=== PATIENT | female | born 1985 | race Caucasian/White ===

== ENCOUNTER 2016-11-27 16:28 | Emergency (ER) | payer SELFPAY ==
[~2016-11-27] VITALS: Ht 157.5 cm; Wt 67.2 kg
[~2016-11-27 16:28] MED LIST: ALBU2.5V7 AEROSOL; ALBU8.5H INH; D ME PO
[2016-11-27 16:30] VITALS: Ht 157.5 cm; Wt 67.2 kg
--- OUTSIDE RECORDS SUMMARY | 2016-11-27 16:32 | XMS REPORT | Continuity of Care Document ---
Author Author [facility] Organization [facility] Address Unknown Phone Unavailable Support Name Relationship Address Phone KIMBERLI GARCIA APRN Caregiver [address] [place] [phone] Unavailable PRESTON IRWIN MD Caregiver [address] [place] [address] Unavailable THEODORAYAS Next Of Kin [address] [place] [phone] Insurance Providers Guarantor Stephanie Car Address [address] [place] [address] Email DENIED 16 Payer Self Pay Subscriber's Name Stephanie Car Relationship 18 Self Advance Directives Directive Response Recorded Date/Time Advanced Directives Type None 11/03/16 2:30pm Chief Complaint and Reason for Visit Chief Complaint Cough,Fever,Flu,URI Reason for Visit [id number] Problems Active Problems Medical Problem Onset Date Status Blackout spell Unknown Acute Blackout spell Unknown Acute Body aches Unknown Acute Drug ingestion Unknown Acute Lumbar back pain Unknown Acute Paraspinal muscle spasm Unknown Acute Polysubstance abuse Unknown Acute Right lower quadrant abdominal pain Unknown Acute Right lower quadrant abdominal pain Unknown Acute Suicide gesture Unknown Acute Past Problems Medical Problem Onset Date Asthma exacerbation Unknown Syncope, non cardiac Unknown Viral gastroenteritis Unknown Viral illness Unknown Medications Current Home Medications Medication Dose Units Route Directions Days Qty Instructions Start Date Albuterol Sulfate 2.5 Mg/3 Ml Vial.neb 2.5 Mg Aerosol Tx. Every 4 Hours Prn as needed for Wheezing 30 Vial 06/16/16 Albuterol Sulfate (Proair Hfa 90 Mcg/Actuation) 8.5 Gm Hfa.aer.ad 2 Puff Inhalation Four Times Daily as needed for Prn Orders 02/14/16 D-Methorphan/Acetamin/Doxylamn (Night Cold-Flu Relief Liq Cap) 1 Each Capsule 1 Cap Oral Every 4 Hours as needed for Prn Orders 11/03/16 Past Home Medications Medication Directions Ordered Status Albuterol 17 Gm Aerosol, As Needed 11/06/11 Discontinued Albuterol (Proventil) 17 Gm Aerosol, 17 Gm Inhalation As Needed 09/16/10 Discontinued Albuterol 17 Gm Aer.refill, 17 Gm Inhalation As Needed 03/01/09 Discontinued Bc , 03/01/09 Discontinued Ethinyl Estradiol/Drospirenone (Cyndie 28 Tablet) 1 Tab Tablet, Oral Daily 04/10 Discontinued Ibuprofen 800 Mg Tablet, 800 Mg Oral As Needed 04/22/12 Discontinued Mometasone Furoate (Nasonex) 17 Gm [place], As Needed 08/09/09 Discontinued None , 06/24/10 Discontinued None , 09/12/08 Discontinued Vits W-Ca,Fe,Fa(<1MG) () 1 Tab Tablet, 1 Tab Oral Daily 15/07 Discontinued Social History Social History Problem Response Recorded Date/Time Onset Date Status Hx Substance Use Y HX MARIJUANA AND COCAINE 11/03/2016 2:30pm Not Applicable Not Applicable Hx Alcohol Use No 11/03/2016 2:30pm Not Applicable Not Applicable Has the pt used tobacco in the last 12 months Yes 05/12/2014 5:01am Not Applicable Not Applicable Tobacco Usage none 05/12/2014 5:50am Not Applicable Not Applicable Query Response Start Date Stop Date Smoking Status Never smoker Hospital Discharge Instructions No hospital discharge instructions. Plan of Care Discharge Date 11/03/16 2:30pm Disposition 01 DISCHARGED HOME, SELF-CARE Condition at Discharge Stable Instructions/Education Provided Viral Syndrome (ED) Prescriptions See Medication Section Referrals KIMBERLI GARCIA APRN Address: [address] [place], [place] [phone] Additional Instructions/Education I do want you to continue to drink plenty of fluids and rest at home. Tylenol and/or Motrin as needed for fever or body aches. If you are not improving over the next 1-2 days then follow up with your primary care provider. Care Plan and Goals Physician Care Plan Problem:Viral Illness Goal: Follow up with primary care provider Instructions: Take medications and follow care plan as discussed/written Functional Status No functional status results. Allergies, Adverse Reactions, Alerts Allergen Type Severity Reaction Status Last Updated promethazine HCl Adverse Reaction Unknown SHAKY AND TIRED Active 11/03/16 hydrocodone bit Adverse Reaction Unknown HOT FLASHES AND SYNCOPE Active Azithromycin Allergy Severe RESP. DISTRESS Active 11/03/16 Immunizations Query Response on File Recorded Date/Time Hx Influenza Vaccination No 09/27/14 10:02am Hx Pneumococcal Vaccination No 09/27/14 10:02am Hx Influenza Vaccination No 09/27/14 10:02am Influenza Vaccine Hx NO 11/03/16 2:30pm Vital Signs Acute Vital Signs Vital Response Date/Time Temperature (Fahrenheit) 98.4 deg F (96.8 - 99.1) 11/03/2016 2:30pm Temperature (Calculated Celsius) 36.09875 degrees C (36.0 - 37.3) 11/03/2016 2:30pm Pulse Rate (adult) 94 bpm (60 - 100) 11/03/2016 2:30pm Respiratory Rate 16 breaths/min (10 - 20) 11/03/2016 2:30pm O2 Sat by Pulse Oximetry 98 % (90 - 100) 11/03/2016 2:30pm Blood Pressure 132/78 mm Hg 11/03/2016 2:30pm Height (Feet) 5 feet 11/03/2016 1:29pm Height (Inches) 2.00 inches 11/03/2016 1:29pm Weight (Kilograms) 70.900 kg 11/03/2016 1:29pm Body Mass Index (BMI) 28.0 11/03/2016 1:29pm Results Laboratory Results Test Name Result Units Flags Reference Collection Date/Time Result Date/ Time Comments Influenza Type A Antigen NEGATIVE NEGATIVE 11/03/2016 1:51pm 2016 2:16pm Negative for Flu A protein antigen. Assay sensitivity is 90%. Influenza Type B Antigen NEGATIVE NEGATIVE 11/03/2016 1:51pm 2016 2:16pm Negative for Flu B protein antigen. Assay sensitivity is 90%. Procedures No known history of procedures. Encounters Encounter Location Arrival/Admit Date Discharge/Depart Date Attending Provider Departed Emergency Room [facility] 11/03/16 1:14pm 11/03/16 2: 30pm PRESTON IRWIN MD Recent Diagnosis
--- OUTSIDE RECORDS SUMMARY | 2016-11-27 16:32 | XMS REPORT | Continuity of Care Document ---
Author Author [facility] Organization [facility] Address Unknown Phone Unavailable Support Name Relationship Address Phone ALVARO HUTCHINSON MD Caregiver [facility] [address] [address] [phone] CHARISMA CASTLE MD Caregiver [address] [place] [address] JEREMY NEWSOME MD Caregiver [address] [place] [address] MARIA ESTHER ENCISO MD Caregiver [address] [place] [address] [phone] CARLOS DAVIS MD Caregiver [address] [place] [phone] YAS YIP Next Of Kin [address] [place] [address] Insurance Providers Payer Name Policy Number Subscriber Name Relationship Self Pay Stephanie Castro 18 Self Advance Directives Directive Response Recorded Date/Time Ordered Resuscitation Status Full Code 05/12/14 3:53am Chief Complaint and Reason for Visit Chief Complaint RLQ PAIN Reason for Visit Right lower quadrant abdominal pain Right lower quadrant abdominal pain Problems Medical Problems Problem Onset Date Status Right lower quadrant abdominal pain Unknown Active Right lower quadrant abdominal pain Unknown Active Medications Medication Dose Route Sig Days/Qty Instructions Order Date Discontinued Date Status [None] 09/12/08 05/09/09 Discontinued [Bc] 03/01/09 08/09/09 Discontinued Albuterol 17 Gm IH NEEDED 03/01/09 05/13/10 Discontinued Ethinyl Estradiol/Drospirenone PO DAILY 08/09/09 05/13/10 Discontinued Mometasone Furoate NEEDED 08/09/09 05/13/10 Discontinued [None] 06/24/10 09/16/10 Discontinued Albuterol 17 Gm IH NEEDED 09/16/10 12/31/10 Discontinued Vits W-Ca,Fe,Fa(<1MG) 1 Tab PO DAILY 06/14/11 04/22/12 Discontinued Albuterol NEEDED 11/06/11 11/24/12 Discontinued Ibuprofen 800 Mg PO NEEDED 04/22/12 11/24/12 Discontinued Social History Social History Problem Response Recorded Date/Time Smoking Status Current every day smoker 05/12/2014 5:01am When did patient START smoking? AGE 17 05/12/2014 5:01am Chewing Tobacco Status No 05/11/2014 11:11pm Hx Substance Use No 05/11/2014 11:11pm Hx Alcohol Use Y RARE 05/11/2014 11:11pm Has the pt used tobacco in the last 12 months Yes 05/12/2014 5:01am Query Response Start Date Stop Date Smoking Status Current every day smoker Hospital Discharge Instructions Instructions: Care Instructions: Reason for Hospitalization: right upper quadrant abdominal pain I was in the hospital because (patient own words): "ABD PAIN" Discharge Diet: As tolerated Discharge Activity: . Restricted Follow Up Appointments: Call Jenny at extension [phone] to make post-op appointment for 05/20/14. Wound/Incision Care: May shower Durable Medical Equipment: N/A Notify Physician If: During the week: If you have questions about your care or wound, Call Dr. Hutchinson's office Condition at time of discharge: Good Condition at time of discharge: Good 2.Do not pick at it or scrub it while showering. 3.If the dressing begins to pull up, secure it with 4x4 gauze pad and tape. 4.You may shower; however, do not submerge yourself in water until the incision is completely healed. Mepilex 1.Dressing to remain in place until your follow up appointment. 2.If this dressing starts peeling up slightly, it may be reinforced, if it peels excessively, notify your surgeon's office. 3.You may shower with the dressing in place, but do not submerge in water 4.Do not allow water to seep under the dressing, if it should seep under, remove the dressing and notify your surgeon. Notify Physician If: Call your Surgeon if you have: 1.Chest pain, difficulty breathing, fever>100.5 degrees, chills, heart rate >100, confusion, or persistent nausea/vomitting. 2.Severe pain, swelling, redness, or warmth in either of your legs. 3.During office hours, call [phone] 4. After hours, please call at [phone], and have the extractor operator page your Surgeon IN THE EVENT OF AN EMERGENCY, seek medical care at the nearest Emergency Room Condition at time of discharge: Good Plan of Care Discharge Date 05/14/14 2:52pm Disposition 01 DISCHARGED HOME, SELF-CARE Instructions/Education Provided DI for Abdominal Pain-Adult Prescriptions See Medications Section Functional Status Query Response Date Recorded Physical Hygiene Self May 11, 2014 11:11pm Disabilities None May 12, 2014 3:27am Devices Used Glasses May 12, 2014 3:27am Dressing Self May 11, 2014 11:11pm Ambulation Self May 11, 2014 11:11pm Diet Self May 11, 2014 11:11pm Mental Status Alert May 12, 2014 5:38am Disabilities None May 12, 2014 3:27am Devices Used Glasses May 12, 2014 3:27am Physical Hygiene Self May 11, 2014 11:11pm Dressing Self May 11, 2014 11:11pm Ambulation Self May 11, 2014 11:11pm Diet Self May 11, 2014 11:11pm Allergies, Adverse Reactions, Alerts Allergen Type Severity Reaction Status Last Updated promethazine HCl Adverse Reaction Unknown SHAKY AND TIRED Active 05/11/14 hydrocodone bit Adverse Reaction Unknown HOT FLASHES AND SYNCOPE Active Doxycycline Adverse Reaction Mild VOMITING Active 05/11/14 Azithromycin Allergy Severe RESP. DISTRESS Active 05/11/14 Immunizations Name Given Type Hx Influenza Vaccination No Historical Hx Pneumococcal Vaccination No Historical Hx Influenza Vaccination No Historical Vital Signs Acute Vital Signs Vital Response Date/Time Temperature (Fahrenheit) 97.9 deg F (96.8 - 99.1) Temperature (Calculated Celsius) 36.50016 degrees C (36.0 - 37.3) Temperature Source Oral Pulse Rate (adult) 51 bpm (60 - 100) Respiratory Rate 16 breaths/min (10 - 20) O2 Sat by Pulse Oximetry 99 % (90 - 100) Oxygen Delivery Method Room Air Blood Pressure 106/74 mm Hg Blood Pressure Source Automatic Cuff Height 5 ft 2 in Weight 165 lb Body Mass Index 30.0 kg/m^2 Results Test Source Date Result Interp. Ref. Range Comments 17-Hydroxyprogesterone July 18, 2010 2:45pm Ref lab rpt scanned - --- 07/22/10 1141 ---17HYD previously reported as: SENT OUT Alanine Aminotransferase (ALT/SGPT) May 11, 2014 11:21pm 30 U/L N 9-52 Albumin May 11, 2014 11:21pm 4.2 G/DL N 3.5-5.0 Albumin/Globulin Ratio May 11, 2014 11:21pm 1.6 RATIO N 1.1-2.2 Alkaline Phosphatase May 11, 2014 11:21pm 100 U/L N 38-126 Amylase Level May 11, 2014 11:21pm 68 U/L N 30-110 Anion Gap May 13, 2014 4:24am 9 MEQ/L N 5-15 Anti-Nuclear Antibody (LAB) December 06, 2007 11:57am Sent out - Aspartate Amino Transf (AST/SGOT) May 11, 2014 11:21pm 24 U/L N 14 -36 BUN/Creatinine Ratio May 13, 2014 4:24am 9 RATIO N 6-26 Band Neutrophils # August 09, 2009 7:35pm 0.1 T/MM3 - Band Neutrophils % August 09, 2009 7:35pm 1.0 % N 0-6 Basophils # (Auto) May 13, 2014 4:24am 0.0 T/MM3 N 0-0.2 Basophils (%) (Auto) May 13, 2014 4:24am 0.2 % N 0-2 Beta HCG, Quantitative September 12, 2008 2:00pm Not detected UIU/L - NORMAL EXPECTED RANGE: NOT DETECTEDGESTATION 1-10 WEEKS: 45-256,380 11-15 WEEKS: 11,556-265,380 16-22 WEEKS: 27,[phone],954 23-40 WEEKS: 24,031-101,566 Blood Urea Nitrogen May 13, 2014 4:24am 6.0 MG/DL DL 7-17 C-Reactive Protein December 06, 2007 11:57am 5.1 MG/L N 3-10 STAT FAX TO [phone] Calcium Level May 13, 2014 4:24am 9.0 MG/DL DN 8.4-10.2 Calculated Osmolality May 13, 2014 4:24am 261 MOSM/KG N 261-280 Carbon Dioxide Level May 13, 2014 4:24am 26 MEQ/L N 22-30 Chemistry Specimen Hemolysis May 13, 2014 4:24am < 15 0-25 0-25 : No Hemolysis.26-70: Slight Hemolysis - can falsely elevate K and Urine Protein. 71-285: Moderate Hemolysis - can falsely elevate K, Troponin I, CA 19-9, PTH, CSF GLucose, and Urine Protein, and can falsely decrease Phenytoin. 286-999: Gross Hemolysis - can falsely elevate K, Troponin I, CA 19-9, PTH, CSF Glucose, and Urine Protine, and can falsely decrease Phenytoin. Recommend specimen recollection. Chlamydia Direct Antigen Assay August 09, 2009 10:37pm Negative - Chlamydia trachomatis Amplified DNA February 16, 2011 1:31pm Ref lab rpt scanned - --- 02/19/11 1533 ---CHLAMDNA previously reported as: SENT OUT Chloride Level May 13, 2014 4:24am 102 MEQ/L N 98-107 Conjugated Bilirubin April 22, 2012 1:07pm 0.00 MG/DL N 0.00-0.30 Creatinine May 13, 2014 4:24am 0.7 MG/DL N 0.7-1.2 Dehydroepiandrosterone Sulfate July 18, 2010 2:45pm Ref lab rpt scanned - --- 07/22/10 1141 ---DHEAS previously reported as: SEND OUT Eosinophils # (Auto) May 13, 2014 4:24am 0.2 T/MM3 N 0-0.5 Eosinophils # (Manual) August 09, 2009 7:35pm 0.1 T/MM3 N 0-0.5 Eosinophils % (Manual) August 09, 2009 7:35pm 1.0 % N 0-4 Eosinophils (%) (Auto) May 13, 2014 4:24am 2.7 % N 0-4 Erythrocyte Sedimentation Rate December 06, 2007 11:57am 9 MM/HR - Follicle Stimulating Hormone July 18, 2010 2:45pm 9.0 MIU/ML - Male: 1.0 - 42.5 Petra/mLFemale Ovulating: Follicular Phase: 2.7 - 15.4 mIU/mL, Peak: 3.9 - 22.0 Petra/mL, Luteal phase: 1.0 - 14.4 mIU/mL, Postmenopausal: 25.0 - 160.0 mIU/mL Fractionated Estrogens July 18, 2010 2:45pm Ref lab rpt scanned - --- 07/24/10 1619 ---ESTROF previously reported as: SENT OUT Free Thyroxine July 18, 2010 2:45pm 1.33 NG/DL N 0.78-2.19 Globulin May 11, 2014 11:21pm 2.6 G/DL N 2.4-3.6 Glomerular Filtration Rate Calc May 13, 2014 4:24am 100 - Glucometer May 13, 2014 3:05pm 85 mg/dL N 65-110 Glucose Level May 13, 2014 4:24am 72 MG/DL N 65-110 Group A Streptococcus Screen December 18, 2007 6:08pm Negative - Strep culture confirmation to follow Hematocrit May 13, 2014 4:24am 43.0 % N 36-46 Hemoglobin May 13, 2014 4:24am 14.5 GM/DL N 12-16 Human Chorionic Gonadotropin, Qual November 24, 2012 12:35pm Negative - Icterus Index May 13, 2014 4:24am < 2 0-7 Immature Granulocyte # (Auto) May 13, 2014 4:24am 0.01 T/MM3 N 0.00-0.03 Immature Granulocyte % (Auto) May 13, 2014 4:24am 0.1 % N 0.0-0.5 Influenza Type A Antigen October 02, 2012 9:10am Negative - Negative for Flu A protein antigen. Assay sensitivity isbetween 65-83%. A negative result does not exclude influenza virus infection. "Influenza FA" may be ordered if clinical presentation warrants confirmatory testing. Influenza Type B Antigen October 02, 2012 9:10am Negative - Negative for Flu B protein antigen. Assay sensitivity isbetween 65-83%. A negative result does not exclude influenza virus infection. "Influenza FA" may be ordered if clinical presentation warrants confirmatory testing. Lab Scanned Report February 21, 2011 8:19am LAB RESULTS - SCANNED [id number] - Lipase May 11, 2014 11:21pm 68 U/L N 23-300 Luteinizing Hormone July 18, 2010 2:45pm 23.6 MIU/ML - Male: 1.7 - 11.2 mIU/mLFemale Ovulating: Follicular Phase: 1.7 - 13.3 mIU/mL, Peak: 4.1 - 68.7 mIU/mL, Luteal phase: 0.5 - 19.8 mIU/mL, Postmenopausal: 14.4 - 62.2 mIU/mL Lymphocytes # (Auto) May 13, 2014 4:24am 3.1 T/MM3 N 1-4.8 Lymphocytes # (Manual) August 09, 2009 7:35pm 2.7 T/MM3 N 1-4.8 Lymphocytes % (Manual) August 09, 2009 7:35pm 25.0 % N 23-45 Lymphocytes (%) (Auto) May 13, 2014 4:24am 35.4 % N 23-45 Mean Corpuscular Hemoglobin May 13, 2014 4:24am 31.4 UUG N 26-34 Mean Corpuscular Hemoglobin Concent May 13, 2014 4:24am 33.7 GM/DL N 31-37 Mean Corpuscular Volume May 13, 2014 4:24am 93.1 UM3 N 80-100 Mean Platelet Volume May 13, 2014 4:24am 12.1 UM3 N 9.4-12.4 Monocytes # (Auto) May 13, 2014 4:24am 0.7 T/MM3 N 0-0.8 Monocytes # (Manual) August 09, 2009 7:35pm 0.6 T/MM3 N 0-0.8 Monocytes % (Manual) August 09, 2009 7:35pm 6.0 % N 0-9.0 Monocytes (%) (Auto) May 13, 2014 4:24am 8.0 % N 0-9.0 Monoscreen May 13, 2010 6:31am Negative - Neutrophils # (Auto) May 13, 2014 4:24am 4.7 T/MM3 N 1.8-7.7 Neutrophils # (Manual) August 09, 2009 7:35pm 7.2 T/MM3 N 1.8-7.7 Neutrophils % (Manual) August 09, 2009 7:35pm 67.0 % H 33-66 Neutrophils (%) (Auto) May 13, 2014 4:24am 53.6 % N 33-66 Platelet Count May 13, 2014 4:24am 192 T/MM3 N 130-400 Potassium Level May 13, 2014 4:24am 4.0 MEQ/L N 3.6-5 Prolactin July 18, 2010 2:45pm 7.8 NG/ML - Male: 3.3 - 20.8 ng/ mLFemale: Premenopausal: 2.1 - 47.6 ng/mL, Postmenopausal: 0 - 41.4 ng/mL RDW Standard Deviation May 13, 2014 4:24am 40.7 FL N 36.9-50.2 Red Blood Count May 13, 2014 4:24am 4.62 M/MM3 N 4.00-5.20 Rheumatoid Factor December 06, 2007 11:57am < 6 IU/ML 0-11 STAT FAX TO [phone] Sodium Level May 13, 2014 4:24am 137 MEQ/L N 134-144 Tests Not Done August 09, 2009 7:29pm Not done - Has specimen been collected/obtained? Y Thyroid Stimulating Hormone (TSH) July 18, 2010 2:45pm 0.82 MIU/ML N 0.47-4.68 Total Bilirubin May 11, 2014 11:21pm 0.40 MG/DL N 0.20-1.30 Total Protein May 11, 2014 11:21pm 6.8 G/DL N 6.3-8.2 Total Testosterone July 18, 2010 2:45pm Ref lab rpt scanned - -- - 07/22/10 1142 ---TESTOT previously reported as: SEND OUT Turbidity May 13, 2014 4:24am < 20 0-20 Unconjugated Bilirubin April 22, 2012 1:07pm 0.00 MG/DL N 0.00-1.10 Urinalysis Comment May 12, 2014 12:41am Microscopic not ind. - Has specimen been collected/obtained? Y Urine Amorphous Phosphates May 09, 2009 1:30pm Few - Has specimen been collected/obtained? YWhat is the Source? VOIDED Urine Bacteria March 01, 2009 1:21pm 1+ - Has specimen been collected/ obtained? YWhat is the Source? VOIDED Urine Bilirubin May 12, 2014 12:41am Negative - Has specimen been collected/obtained? Y Urine Blood May 12, 2014 12:41am Negative - Has specimen been collected/obtained? Y Urine Collection Type May 12, 2014 12:41am Voided-not cc-midstr - Has specimen been collected/obtained? Y Urine Color May 12, 2014 12:41am Yellow - Has specimen been collected/obtained? Y Urine Culture Indicated May 09, 2009 1:30pm Cult not set up - Has specimen been collected/obtained? YWhat is the Source? VOIDED Urine Glucose (UA) May 12, 2014 12:41am Negative - Has specimen been collected/obtained? Y Urine Ketones May 12, 2014 12:41am Negative - Has specimen been collected/obtained? Y Urine Leukocyte Esterase May 12, 2014 12:41am Negative - Has specimen been collected/obtained? Y Urine Microscopic Not Indicated April 22, 2012 1:55pm Not indicated - Has specimen been collected/obtained? Y Urine Mucus March 01, 2009 1:21pm Present - Has specimen been collected/obtained? YWhat is the Source? VOIDED Urine Nitrite May 12, 2014 12:41am Negative - Has specimen been collected/obtained? Y Urine Protein May 12, 2014 12:41am Negative - Has specimen been collected/obtained? Y Urine RBC March 01, 2009 1:21pm 0-1 /HPF - Has specimen been collected /obtained? YWhat is the Source? VOIDED Urine Specific [place] May 12, 2014 12:41am 1.015 - Has specimen been collected/obtained? Y Urine Squamous Epithelial Cells May 09, 2009 1:30pm Few - Has specimen been collected/obtained? YWhat is the Source? VOIDED Urine Turbidity May 12, 2014 12:41am Clear - Has specimen been collected/obtained? Y Urine Urobilinogen May 12, 2014 12:41am 0.2 EU/DL - Has specimen been collected/obtained? Y Urine WBC May 09, 2009 1:30pm 1-3 /HPF - Has specimen been collected/obtained? YWhat is the Source? VOIDED Urine pH May 12, 2014 12:41am 8.0 - Has specimen been collected /obtained? Y White Blood Count May 13, 2014 4:24am 8.7 T/MM3 N 4.5-11.0 Wet Prep Cervix February 16, 2011 1:31pm Group A Streptococcus Culture Throat December 18, 2007 6:37pm Name: STEPHANIE CASTRO Unit #: [id number] : 1985 Sex: F Loc / [facility] [place] [facility] [place] 05/11/[place] Signed Report #: [id number] DIAGNOSTIC IMAGING REPORT TYPE OF EXAM: RF CHOLANGIOGRAM OPERATIVE Dictated By: JENIFFER SNEED MD INDICATION: ITS.REASON: LAP MARIE RF CHOLANGIOGRAM OPERATIVE: Comparison: None Findings: 5 fluoroscopic spot images are submitted from an intraoperative cholangiogram. Images demonstrate injection of contrast into the cystic duct with filling of the common duct and intrahepatic biliary tree. No discrete filling defects are identified. Contrast flows into the duodenum. Impression: Intraoperative fluoroscopy as above. Please refer to the dictated operative note for further details. . Procedures Procedure Status Date Provider(s) Laparoscopic cholecystectomy completed 05/13/14 ALVARO HUTCHINSON MD Encounters Encounter Location Date/Time Discharged Inpatient [facility] 05/12/14 3:26am Recent Diagnosis Right lower quadrant abdominal pain Right lower quadrant abdominal pain
--- OUTSIDE RECORDS SUMMARY | 2016-11-27 16:32 | XMS REPORT | Continuity of Care Document ---
Author Author [facility] Organization [facility] Address Unknown Phone Unavailable Support Name Relationship Address Phone JEREMY NEWSOME MD Caregiver [address] [place], [place] [phone] NORMA WU MD Caregiver [address] [place] [address] [place] [phone] YAS YIP Next Of Kin [address] [place] [address] Insurance Providers Payer Name Policy Number Subscriber Name Relationship Self Pay Stephanie Castro 20 Self Problems Medical Problems Problem Onset Date Status Right lower quadrant abdominal pain Unknown Active Right lower quadrant abdominal pain Unknown Active Blackout spell Unknown Active Body aches Unknown Active Medications Medication Dose Route Sig [...] 800 Mg PO NEEDED 04/22/12 11/24/12 Discontinued [No Known Medications] 09/27/14 Active Social History Social History Problem Response Recorded Date/Time Hx Substance Use No 09/27/2014 10:02am Hx Alcohol Use Y 09/25/14 09/27/2014 10:02am Has the pt used tobacco in the last 12 months Yes 05/12/2014 5:01am Tobacco Usage none 05/12/2014 5:50am Query Response Start Date Stop Date Smoking Status Current every day smoker Hospital Discharge Instructions No hospital discharge instructions. Plan of Care No plan of care. Functional Status Query Response Date Recorded Physical Hygiene Self September 27, 2014 10:02am Disabilities None September 27, 2014 10:02am Devices Used Glasses None September 27, 2014 10:02am Dressing Self September 27, 2014 10:02am Ambulation Self September 27, 2014 10:02am Diet Self September 27, 2014 10:02am Mental Status Alert Oriented September 27, 2014 10:02am Disabilities None September 27, 2014 10:02am Devices Used Glasses None September 27, 2014 10:02am Physical Hygiene Self September 27, 2014 10:02am Dressing Self September 27, 2014 10:02am Ambulation Self September 27, 2014 10:02am Diet Self September 27, 2014 10:02am Allergies, Adverse Reactions, Alerts Allergen Type Severity Reaction Status Last Updated promethazine HCl Adverse Reaction Unknown SHAKY AND TIRED Active 09/27/14 hydrocodone bit Adverse Reaction Unknown HOT FLASHES AND SYNCOPE Active Azithromycin Allergy Severe RESP. DISTRESS Active 09/27/14 Immunizations Name Given Type Hx Influenza Vaccination No Historical Hx Pneumococcal Vaccination No Historical Hx Influenza Vaccination No Historical Vital Signs Acute Vital Signs Vital Response Date/Time Temperature (Fahrenheit) 97.6 deg F (96.8 - 99.1) Temperature (Calculated Celsius) 36.93709 degrees C (36.0 - 37.3) Pulse Rate (adult) 57 bpm (60 - 100) Respiratory Rate 12 breaths/min (10 - 20) O2 Sat by Pulse Oximetry 98 % (90 - 100) Blood Pressure 101/67 mm Hg Height 5 ft 2 in Weight 147 lb Body Mass Index 27.0 kg/m^2 Results Test Source Date Result Interp. Ref. Range Comments 17-Hydroxyprogesterone July 18, 2010 2:45pm Ref lab rpt scanned - --- 07/22/10 1141 ---17HYD previously reported as: SENT OUT Alanine Aminotransferase (ALT/SGPT) September 27, 2014 10:30am 66 U/L H 9- 52 Albumin September 27, 2014 10:30am 4.2 G/DL N 3.5-5.0 Albumin/Globulin Ratio September 27, 2014 10:30am 1.4 RATIO N 1.1-2.2 Alkaline Phosphatase September 27, 2014 10:30am 116 U/L N 38-126 Amylase Level May 11, 2014 11:21pm 68 U/L N 30-110 Anion Gap September 27, 2014 10:30am 9 MEQ/L N 5-15 Anti-Nuclear Antibody (LAB) December 06, 2007 11:57am Sent out - Aspartate Amino Transf (AST/SGOT) September 27, 2014 10:30am 28 U/L N 14- 36 BUN/Creatinine Ratio September 27, 2014 10:30am 14 RATIO N 6-26 Band Neutrophils # August 09, 2009 7:35pm 0.1 T/MM3 - Band Neutrophils % August 09, 2009 7:35pm 1.0 % N 0-6 Basophils # (Auto) September 27, 2014 10:30am 0.0 T/MM3 N 0-0.2 Basophils (%) (Auto) September 27, 2014 10:30am 0.4 % N 0-2 Beta HCG, Quantitative September 12, 2008 2:00pm Not detected UIU/L - NORMAL EXPECTED RANGE: NOT DETECTEDGESTATION 1-10 WEEKS: 45-256,380 11-15 WEEKS: 11,556-265,380 16-22 WEEKS: 27,023-111,954 23-40 WEEKS: 24,031-101,566 Blood Urea Nitrogen September 27, 2014 10:30am 10.0 MG/DL N 7-17 C-Reactive Protein December 06, 2007 11:57am 5.1 MG/L N 3-10 STAT FAX TO [phone] Calcium Level September 27, 2014 10:30am 9.6 MG/DL N 8.4-10.2 Calculated Osmolality September 27, 2014 10:30am 267 MOSM/KG N 261-280 Carbon Dioxide Level September 27, 2014 10:30am 25 MEQ/L N 22-30 Chemistry Specimen Hemolysis September 27, 2014 10:30am < 15 0-25 0-25 : No Hemolysis.26-70: [...] previously reported as: SENT OUT Chloride Level September 27, 2014 10:30am 105 MEQ/L N 98-107 Conjugated Bilirubin April 22, 2012 1:07pm 0.00 MG/DL N 0.00-0.30 Creatinine September 27, 2014 10:30am 0.7 MG/DL N 0.7-1.2 Dehydroepiandrosterone Sulfate July 18, 2010 2:45pm Ref lab rpt scanned - --- 07/22/10 1141 ---DHEAS previously reported as: SEND OUT Eosinophils # (Auto) September 27, 2014 10:30am 0.3 T/MM3 N 0-0.5 Eosinophils # (Manual) August 09, 2009 7:35pm 0.1 T/MM3 N 0-0.5 Eosinophils % (Manual) August 09, 2009 7:35pm 1.0 % N 0-4 Eosinophils (%) (Auto) September 27, 2014 10:30am 3.6 % N 0-4 Erythrocyte Sedimentation Rate December [...] 2010 2:45pm 1.33 NG/DL N 0.78-2.19 Globulin September 27, 2014 10:30am 3.1 G/DL N 2.4-3.6 Glomerular Filtration Rate Calc September 27, 2014 10:30am 100 - Glucometer May 13, 2014 3:05pm 85 mg/dL N 65-110 Glucose Level September 27, 2014 10:30am 93 MG/DL N 65-110 Group A Streptococcus Screen December 18, 2007 6:08pm Negative - Strep culture confirmation to follow Hematocrit September 27, 2014 10:30am 41.9 % N 36-46 Hemoglobin September 27, 2014 10:30am 14.2 GM/DL N 12-16 Human Chorionic Gonadotropin, Qual November 24, 2012 12:35pm Negative - Icterus Index September 27, 2014 10:30am < 2 0-7 Immature Granulocyte # (Auto) September 27, 2014 10:30am 0.02 T/MM3 N 0.00 -0.03 Immature Granulocyte % (Auto) September 27, 2014 10:30am 0.2 % N 0.0-0.5 Influenza Type A Antigen [...] presentation warrants confirmatory testing. Lab Scanned Report September 27, 2014 12:23pm REFERENCE LAB - Lipase May 11, 2014 11:21pm 68 U/L N 23-300 Luteinizing Hormone July 18, 2010 2:45pm 23.6 MIU/ML - Male: 1.7 - 11.2 mIU/mLFemale Ovulating: Follicular Phase: 1.7 - 13.3 mIU/mL, Peak: 4.1 - 68.7 mIU/mL, Luteal phase: 0.5 - 19.8 mIU/mL, Postmenopausal: 14.4 - 62.2 mIU/mL Lymphocytes # (Auto) September 27, 2014 10:30am 3.5 T/MM3 N 1-4.8 Lymphocytes # (Manual) August 09, 2009 7:35pm 2.7 T/MM3 N 1-4.8 Lymphocytes % (Manual) August 09, 2009 7:35pm 25.0 % N 23-45 Lymphocytes (%) (Auto) September 27, 2014 10:30am 37.2 % N 23-45 Mean Corpuscular Hemoglobin September 27, 2014 10:30am 32.1 UUG N 26-34 Mean Corpuscular Hemoglobin Concent September 27, 2014 10:30am 33.9 GM/DL N 31-37 Mean Corpuscular Volume September 27, 2014 10:30am 94.6 UM3 N 80-100 Mean Platelet Volume September 27, 2014 10:30am 11.1 UM3 N 9.4-12.4 Monocytes # (Auto) September 27, 2014 10:30am 0.9 T/MM3 H 0-0.8 Monocytes # (Manual) August 09, 2009 7:35pm 0.6 T/MM3 N 0-0.8 Monocytes % (Manual) August 09, 2009 7:35pm 6.0 % N 0-9.0 Monocytes (%) (Auto) September 27, 2014 10:30am 9.4 % H 0-9.0 Monoscreen May 13, 2010 6:31am Negative - Neutrophils # (Auto) September 27, 2014 10:30am 4.6 T/MM3 N 1.8-7.7 Neutrophils # (Manual) August 09, 2009 7:35pm 7.2 T/MM3 N 1.8-7.7 Neutrophils % (Manual) August 09, 2009 7:35pm 67.0 % H 33-66 Neutrophils (%) (Auto) September 27, 2014 10:30am 49.2 % N 33-66 Platelet Count September 27, 2014 10:30am 232 T/MM3 N 130-400 Potassium Level September 27, 2014 10:30am 3.7 MEQ/L N 3.6-5 Prolactin July 18, 2010 2:45pm 7.8 NG/ML - Male: 3.3 - 20.8 ng/ mLFemale: Premenopausal: 2.1 - 47.6 ng/mL, Postmenopausal: 0 - 41.4 ng/mL RDW Standard Deviation September 27, 2014 10:30am 40.7 FL N 36.9-50.2 Red Blood Count September 27, 2014 10:30am 4.43 M/MM3 N 4.00-5.20 Rheumatoid Factor December 06, 2007 11:57am < 6 IU/ML 0-11 STAT FAX TO [phone] Sodium Level September 27, 2014 10:30am 139 MEQ/L N 134-144 Tests Not Done August 09, 2009 7:29pm Not done - Has specimen been collected/obtained? Y Thyroid Stimulating Hormone (TSH) July 18, 2010 2:45pm 0.82 MIU/ML N 0.47-4.68 Total Bilirubin September 27, 2014 10:30am 0.70 MG/DL N 0.20-1.30 Total Protein September 27, 2014 10:30am 7.3 G/DL N 6.3-8.2 Total Testosterone July 18, 2010 2:45pm Ref lab rpt scanned - -- - 07/22/10 1142 ---TESTOT previously reported as: SEND OUT Turbidity September 27, 2014 10:30am < 20 0-20 Unconjugated Bilirubin April 22, 2012 1:07pm 0.00 MG/DL N 0.00-1.10 Urinalysis Comment September 27, 2014 10:47am Microscopic not ind. - Has specimen been collected/obtained? Y Urine Amorphous Phosphates May 09, 2009 1:30pm Few - Has specimen been collected/obtained? YWhat is the Source? VOIDED Urine Bacteria March 01, 2009 1:21pm 1+ - Has specimen been collected/ obtained? YWhat is the Source? VOIDED Urine Bilirubin September 27, 2014 10:47am Negative - Has specimen been collected/obtained? Y Urine Blood September 27, 2014 10:47am Negative - Has specimen been collected/obtained? Y Urine Collection Type September 27, 2014 10:47am Cleancatch-midstream - Has specimen been collected/obtained? Y Urine Color September 27, 2014 10:47am Yellow - Has specimen been collected/obtained? Y Urine Culture Indicated May 09, 2009 1:30pm Cult not set up - Has specimen been collected/obtained? YWhat is the Source? VOIDED Urine Glucose (UA) September 27, 2014 10:47am Negative - Has specimen been collected/obtained? Y Urine Ketones September 27, 2014 10:47am Negative - Has specimen been collected/obtained? Y Urine Leukocyte Esterase September 27, 2014 10:47am Negative - Has specimen been collected/obtained? Y Urine Microscopic Not Indicated April 22, 2012 1:55pm Not indicated - Has specimen been collected/obtained? Y Urine Mucus March 01, 2009 1:21pm Present - Has specimen been collected/obtained? YWhat is the Source? VOIDED Urine Nitrite September 27, 2014 10:47am Negative - Has specimen been collected/obtained? Y Urine Protein September 27, 2014 10:47am Trace H - Has specimen been collected/obtained? Y Urine RBC March 01, 2009 1:21pm 0-1 /HPF - Has specimen been collected /obtained? YWhat is the Source? VOIDED Urine Specific [place] September 27, 2014 10:47am 1.015 - Has specimen been collected/obtained? Y Urine Squamous Epithelial Cells May 09, 2009 1:30pm Few - Has specimen been collected/obtained? YWhat is the Source? VOIDED Urine Turbidity September 27, 2014 10:47am Cloudy - Has specimen been collected/obtained? Y Urine Urobilinogen September 27, 2014 10:47am 1.0 EU/DL - Has specimen been collected/obtained? Y Urine WBC May 09, 2009 1:30pm 1-3 /HPF - Has specimen been collected/obtained? YWhat is the Source? VOIDED Urine pH September 27, 2014 10:47am 8.5 H - Has specimen been collected/ obtained? Y White Blood Count September 27, 2014 10:30am 9.4 T/MM3 N 4.5-11.0 Wet Prep Cervix February 16, 2011 1:31pm Group A Streptococcus Culture Throat December 18, 2007 6:37pm Procedures No known history of procedures. Encounters Encounter Location Date/Time Departed Emergency Room [facility] 09/27/14 9:01am Recent Diagnosis
--- NOTE | 2016-11-27 16:44 | NUR ---
PROVIDER JASSON FRAZIER APRN IN ROOM WITH PT.
--- OUTSIDE RECORDS SUMMARY | 2016-11-27 16:44 | XMS REPORT | Continuity of Care Document ---
Author Author [facility] Organization [facility] Address Unknown Phone Unavailable Support Name Relationship Address Phone JEREMY NEWSOME MD Caregiver [address] [place], [place] [phone] NORMA WU MD Caregiver [address] [place] [address] [place] [phone] YAS YIP Next Of Kin [address] [place] [address] Insurance Providers Payer Name Policy Number Subscriber [...] F (96.8 - 99.1) Temperature (Calculated Celsius) 36.70654 degrees C (36.0 - 37.3) Pulse Rate [...] 5.1 MG/L N 3-10 STAT FAX TO [phone] Calcium Level September 27, 2014 10:30am 9.6 [...] < 6 IU/ML 0-11 STAT FAX TO [phone] Sodium Level September 27, 2014 10:30am 139 [...] YWhat is the Source? VOIDED Urine Specific [place] September 27, 2014 10:47am 1.015 - Has [...] Encounters Encounter Location Date/Time Departed Emergency Room [facility] 09/27/14 9:01am Recent Diagnosis
--- OUTSIDE RECORDS SUMMARY | 2016-11-27 16:44 | XMS REPORT | Continuity of Care Document ---
Author Author [facility] Organization [facility] Address Unknown Phone Unavailable Support Name Relationship Address Phone ALVARO HUTCHINSON MD Caregiver [facility] [address] [place] [address] [phone] CHARISMA CASTLE MD Caregiver [address] [place] [address] JEREMY NEWSOME MD Caregiver [address] [place] [address] MARIA ESTHER ENCISO MD Caregiver [address] [place] [address] [phone] CARLOS DAVIS MD Caregiver [address] [phone] YAS YIP Next Of Kin [address] [place] [address] Insurance Providers Payer Name Policy Number Subscriber [...] Follow Up Appointments: Call Jenny at extension [phone] to make post-op appointment for 05/20/14. Wound/Incision [...] of your legs. 3.During office hours, call [phone] 4. After hours, please call [facility] at [phone], and have the sanding machine operator page your Surgeon IN THE EVENT [...] F (96.8 - 99.1) Temperature (Calculated Celsius) 36.54100 degrees C (36.0 - 37.3) Temperature Source [...] 5.1 MG/L N 3-10 STAT FAX TO [phone] Calcium Level May 13, 2014 4:24am 9.0 [...] 21, 2011 8:19am LAB RESULTS - SCANNED [id number] - Lipase May 11, 2014 11:21pm 68 [...] < 6 IU/ML 0-11 STAT FAX TO [phone] Sodium Level May 13, 2014 4:24am 137 [...] YWhat is the Source? VOIDED Urine Specific [place] May 12, 2014 12:41am 1.015 - Has [...] 2007 6:37pm Name: STEPHANIE CASTRO Unit #: [id number] : 1985 Sex: F [place] [facility] [place] [facility] [place] DOS: 05/11/14 Signed Report #: [id number] DIAGNOSTIC IMAGING REPORT TYPE OF EXAM: RF [...] MD Encounters Encounter Location Date/Time Discharged Inpatient [facility] 05/12/14 3:26am Recent Diagnosis Right lower quadrant abdominal pain Right lower quadrant abdominal pain
[2016-11-27] MEDS ORDERED: IBUP-1724 PO (16:46)
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
--- NOTE | 2016-11-27 17:03 | NUR ---
UA AMBULATES TO THE BATHROOM FOR UA
[2016-11-27] MEDS ORDERED: OXYCODONE/APAP 5mg/325mg TABLET PO ONE (19:00)
[2016-11-27] MEDS ORDERED: NAPR500T PO (19:23)
[2016-11-27] MEDS ORDERED: OXYC-46 PO (19:23)
[2016-11-27 19:35] VITALS: BP 129/83; PULSE 100; RESP 16; TEMP 98; O2SAT 99
--- NOTE | 2016-11-27 19:35 | NUR ---
DEPART VERBAL AND WRITTEN DISCHARGE INSTRUCTIONS GIVEN AND UNDERSTOOD. CONDITION STABLE. RELEASED AMBULATORY FROM ER WITH SISTER. SCRIPTS GIVEN.
--- NOTE | 2016-11-28 08:06 | DI ---
Indication: ITS.REASON: jaw pain, trismus PROCEDURE: CT MAXILLOFACIAL W/O CONTRAST: Encounter: Initial Comparison: None Technique: Axial noncontrast CT images through the mid face were performed with coronal and sagittal two-dimensional reformats. Automated Exposure Control and Iterative Reconstruction dose reducing techniques were utilized. Findings: Paranasal sinuses are clear as are the visualized mastoid air cells. No acute maxillofacial fracture. No fluid collections seen. Mild soft tissue swelling overlying the left anterior mandible could be posttraumatic. Globes are intact. Lenses are located. Left eyebrow area piercing. Impression: No acute fracture. There is a preliminary report by virtual radiologic. .
== END 2016-11-27 19:35 | disposition home or self-care (01) ==
LOC: ED 16:28
DX: S00.83XA Contusion of other part of head, initial encounter (principal); Y04.0XXA Assault by unarmed brawl or fight, initial encounter; Y93.89 Activity, other specified; Y92.009 Unspecified place in unspecified non-institutional (private) residence as the place of occurrence of the external cause; Y99.8 Other external cause status
CPT/HCPCS: 81025

== ENCOUNTER 2017-01-24 03:02 | Emergency (ER) | payer OTHER ==
[~2017-01-24] VITALS: Ht 157.5 cm; Wt 67.4 kg
[~2017-01-24 03:02] MED LIST changes: -D ME PO; +IBUP-1724 PO; +NAPR500T PO; +OXYC-46 PO
[2017-01-24 03:04] VITALS: Ht 157.5 cm; Wt 67.4 kg
--- OUTSIDE RECORDS SUMMARY | 2017-01-24 03:06 | XMS REPORT | Continuity of Care Document ---
Author Author [facility] Organization [facility] Address Unknown Phone Unavailable Support Name Relationship Address Phone ALVARO HUTCHINSON MD Caregiver [facility] [address] [place] [address] [phone] CHARISMA CASTLE MD Caregiver [address] [place] [address] JEREMY NEWSOME MD Caregiver [address] [place] [address] MARIA ESTHER ENCISO MD Caregiver [address] [place] [address] [phone] CARLOS DAVIS MD Caregiver [address] [phone] YAS YIP Next Of Kin [address] [place] [address] Insurance Providers Payer Name Policy Number Subscriber [...] Follow Up Appointments: Call Jenny at extension [phone] to make post-op appointment for 05/20/14. Wound/Incision [...] of your legs. 3.During office hours, call [phone] 4. After hours, please call [facility] at [phone], and have the protective signal operator page your Surgeon IN THE EVENT [...] F (96.8 - 99.1) Temperature (Calculated Celsius) 36.57191 degrees C (36.0 - 37.3) Temperature Source [...] 5.1 MG/L N 3-10 STAT FAX TO [phone] Calcium Level May 13, 2014 4:24am 9.0 [...] 21, 2011 8:19am LAB RESULTS - SCANNED [id number] - Lipase May 11, 2014 11:21pm 68 [...] < 6 IU/ML 0-11 STAT FAX TO [phone] Sodium Level May 13, 2014 4:24am 137 [...] YWhat is the Source? VOIDED Urine Specific [place] May 12, 2014 12:41am 1.015 - Has [...] 2007 6:37pm Name: STEPHANIE CASTRO Unit #: [id number] : 1985 Sex: F Loc / [facility] [place]: [facility] [place] DOS: 05/11/14 Signed Report #: [id number] DIAGNOSTIC IMAGING REPORT TYPE OF EXAM: RF [...] MD Encounters Encounter Location Date/Time Discharged Inpatient [facility] 05/12/14 3:26am Recent Diagnosis Right lower quadrant abdominal pain Right lower quadrant abdominal pain
--- OUTSIDE RECORDS SUMMARY | 2017-01-24 03:06 | XMS REPORT | Continuity of Care Document ---
Author Author [facility] Organization [facility] Address Unknown Phone Unavailable Support Name Relationship Address Phone DUKE KINGSTON MD Caregiver [address] [place] [address] [place] [address] Unavailable KIMBERLI GARCIA APRN Caregiver [address] [place] [address] Unavailable THEODORAJAVI CHADWICKINA Next Of Kin [address] [place] [address] Insurance Providers Guarantor Stephanie Castro Address [address] [place] [id number] Email DENIED 16 Payer Self Pay Subscriber's Name Stephanie Castro Relationship 18 Self Advance Directives Directive Response Recorded Date/Time Advanced Directives Type None 11/27/16 4:30pm Chief Complaint and Reason for Visit Chief Complaint Head Injury Reason for Visit [id number] Problems Active Problems Medical Problem Onset Date [...] Medical Problem Onset Date Asthma exacerbation Unknown Facial contusion Unknown Syncope, non cardiac Unknown Viral gastroenteritis [...] Daily as needed for Prn Orders 02/14/16 Ibuprofen 200 Mg Tablet 400 Mg Oral Every 4 Hours as needed for Pain 11/27/16 Naproxen (Naprosyn) 500 Mg Tablet 1 Tab Oral Twice A Day 20 Tablet 11/27/16 Oxycodone Hcl/Acetaminophen (Percocet 5-325 Mg Tablet) 5-325 Tablet 1 Tab Oral Every 6 Hours 8 Tablet 11/27/16 Past Home Medications Medication Directions Ordered Status [...] 04/22/12 Discontinued Mometasone Furoate (Nasonex) 17 [address] [place], As Needed 08/09/09 Discontinued None , 06/24/10 Discontinued None , 09/12/08 Discontinued Vits W-Ca,Fe,Fa(<1MG) () 1 Tab Tablet, 1 Tab Oral Daily 15/07 Discontinued Social History Social History Problem Response Recorded Date/Time Onset Date Status Chewing Tobacco Status No 11/27/2016 4:38pm Not Applicable Not Applicable Hx Substance Use Y HX MARIJUANA AND COCAINE 11/27/2016 4:38pm Not Applicable Not Applicable Hx Alcohol Use No 11/27/2016 4:38pm Not Applicable Not Applicable Has the pt used tobacco in the last 12 months Yes 05/12/2014 5:01am Not Applicable Not Applicable Tobacco Usage none 05/12/2014 5:50am Not Applicable Not Applicable Query Response Start Date Stop Date Smoking Status Current every day smoker Hospital Discharge Instructions No hospital discharge instructions. Plan of Care Discharge Date 11/27/16 7:35pm Disposition 01 DISCHARGED HOME, SELF-CARE Condition at Discharge Stable Instructions/Education Provided Facial Contusion (ED) Prescriptions See Medication Section Referrals KIMBERLI GARCIA GLAZIER ARTIST Address: [address] [place] [address] [phone] Additional Instructions/Education Apply ice or warm compress to the jaw to help with pain and swelling. I do want you to take some Naproxen on a schedule and may use the Percocet for severe pain. Follow up with a dentist or your primary care provider if any further concerns. Care Plan and Goals Physician Care Plan Problem:Facial Contusion Goal: Follow up with primary care provider [...] No 09/27/14 10:02am Influenza Vaccine Hx NO 11/27/16 4:38pm Vital Signs Acute Vital Signs Vital Response Date/Time Temperature (Fahrenheit) 98.0 deg F (96.8 - 99.1) 11/27/2016 7:35pm Temperature (Calculated Celsius) 36.69419 degrees C (36.0 - 37.3) 11/27/2016 7:35pm Pulse Rate (adult) 100 bpm (60 - 100) 11/27/2016 7:35pm Respiratory Rate 16 breaths/min (10 - 20) 11/27/2016 7:35pm O2 Sat by Pulse Oximetry 99 % (90 - 100) 11/27/2016 7:35pm Blood Pressure 129/83 mm Hg 11/27/2016 7:35pm Height (Feet) 5 feet 11/27/2016 4:30pm Height (Inches) 2.00 inches 11/27/2016 4:30pm Weight (Kilograms) 67.200 kg 11/27/2016 4:30pm Body Mass Index (BMI) 27.0 11/27/2016 4:30pm Results Laboratory Results Test Name Result Units [...] Discharge/Depart Date Attending Provider Departed Emergency Room [facility] 11/27/16 4:28pm 11/27/16 7: 35pm DUKE KINGSTON MD Departed Emergency Room [facility] 11/03/16 1:14pm 11/03/16 2: 30pm PRESTON IRWIN MD Recent Diagnosis
--- OUTSIDE RECORDS SUMMARY | 2017-01-24 03:06 | XMS REPORT | Continuity of Care Document ---
Author Author [facility] Organization [facility] Address Unknown Phone Unavailable Support Name Relationship Address Phone JEREMY NEWSOME MD Caregiver [address] [place], [place] [id number] NORMA WU MD Caregiver [address] [place] [address] [place] [phone] YAS YIP Next Of Kin [address] [place] [address] Insurance Providers Payer Name Policy Number Subscriber [...] F (96.8 - 99.1) Temperature (Calculated Celsius) 36.27918 degrees C (36.0 - 37.3) Pulse Rate [...] 5.1 MG/L N 3-10 STAT FAX TO [phone] Calcium Level September 27, 2014 10:30am 9.6 [...] < 6 IU/ML 0-11 STAT FAX TO [phone] Sodium Level September 27, 2014 10:30am 139 [...] YWhat is the Source? VOIDED Urine Specific [place] September 27, 2014 10:47am 1.015 - Has [...] Encounters Encounter Location Date/Time Departed Emergency Room [facility] 09/27/14 9:01am Recent Diagnosis
--- NOTE | 2017-01-24 03:15 | NUR ---
PROVIDER DR. IRWIN IN ROOM WITH PT.
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
--- NOTE | 2017-01-24 03:41 | NUR ---
LAB LAB IN ROOM WITH PT.
--- OUTSIDE RECORDS SUMMARY | 2017-01-24 03:50 | XMS REPORT | Continuity of Care Document ---
Author Author [facility] Organization [facility] Address Unknown Phone Unavailable Support Name Relationship Address Phone ALVARO HUTCHINSON MD Caregiver [facility] [address] [place] [address] [phone] CHARISMA CASTLE MD Caregiver [address] [place] [address] JEREMY NEWSOME MD Caregiver [address] [place] [address] MARIA ESTHER ENCISO MD Caregiver [address] [place] [address] [phone] CARLOS DAVIS MD Caregiver [address] [phone] YAS YIP Next Of Kin [address] [place] [address] Insurance Providers Payer Name Policy Number Subscriber [...] Follow Up Appointments: Call Jenny at [phone] to make post-op appointment for 05/20/14. Wound/Incision [...] of your legs. 3.During office hours, call [phone] 4. After hours, please call [facility] at [phone], and have the paper cup machine operator page your Surgeon IN THE [...] F (96.8 - 99.1) Temperature (Calculated Celsius) 36.75688 degrees C (36.0 - 37.3) Temperature Source [...] 5.1 MG/L N 3-10 STAT FAX TO [phone] Calcium Level May 13, 2014 4:24am 9.0 [...] 21, 2011 8:19am LAB RESULTS - SCANNED [id number] - Lipase May 11, 2014 11:21pm 68 [...] < 6 IU/ML 0-11 STAT FAX TO [phone] Sodium Level May 13, 2014 4:24am 137 [...] YWhat is the Source? VOIDED Urine Specific [place] May 12, 2014 12:41am 1.015 - Has [...] 2007 6:37pm Name: STEPHANIE CASTRO Unit #: [id number] : 1985 Sex: F [place] [facility] [place] [facility] [place] DOS: 05/11/14 Signed Report #: [id number] DIAGNOSTIC IMAGING REPORT TYPE OF EXAM: RF [...] MD Encounters Encounter Location Date/Time Discharged Inpatient [facility] 05/12/14 3:26am Recent Diagnosis Right lower quadrant abdominal pain Right lower quadrant abdominal pain
--- OUTSIDE RECORDS SUMMARY | 2017-01-24 03:50 | XMS REPORT | Continuity of Care Document ---
Author Author [facility] Organization [facility] Address Unknown Phone Unavailable Support Name Relationship Address Phone JEREMY NEWSOME MD Caregiver [address] [place], [place] [phone] NORMA WU MD Caregiver [address] [place] [address] [place] [phone] YAS YIP Next Of Kin [address] [place] [address] Insurance Providers Payer Name Policy Number Subscriber [...] F (96.8 - 99.1) Temperature (Calculated Celsius) 36.24431 degrees C (36.0 - 37.3) Pulse Rate [...] 5.1 MG/L N 3-10 STAT FAX TO [phone] Calcium Level September 27, 2014 10:30am 9.6 [...] < 6 IU/ML 0-11 STAT FAX TO [phone] Sodium Level September 27, 2014 10:30am 139 [...] YWhat is the Source? VOIDED Urine Specific [place] September 27, 2014 10:47am 1.015 - Has [...] Encounters Encounter Location Date/Time Departed Emergency Room [facility] 09/27/14 9:01am Recent Diagnosis
[2017-01-24 04:00] LABS: BLOOD, URINE TRACE-INTACT (NEGATIVE); COLOR,URINE YELLOW (YELLOW); LEUKOCYTE ESTERASE ,URINE NEGATIVE (NEGATIVE); NITRITE,URINE NEGATIVE (NEGATIVE); UROBILINOGEN,URINE 0.2 EU/DL (NORMAL)
[2017-01-24 04:00] LABS: HCT - HEMATOCRIT 45.9 % (36-46); HGB - HEMOGLOBIN 15.7 GM/DL (12-16); MEAN CORPUSCULAR HGB CONC(MCHC 34.2 GM/DL (31-37); MEAN CORPUSCULAR VOLUME 96.4 UM3 (80-100); MEAN PLATELET VOLUME 10.7 UM3 (9.4-12.4); RED BLOOD COUNT 4.76 M/MM3 (4.00-5.20); WBC - WHITE BLOOD COUNT 17.2 T/MM3 (4.5-11.0)
[2017-01-24 04:08] LABS: AMPHETAMINE SCREEN,URINE NEGATIVE; BARBITURATE SCREEN,URINE NEGATIVE; BENZODIAZEPINES SCREEN,URINE NEGATIVE; CANNABINOID SCREEN,URINE POSITIVE; COCAINE SCREEN,URINE POSITIVE; METHADONE SCREEN, URINE NEGATIVE; METHAMPHETAMINE SCREEN, URINE NEGATIVE; OPIATE SCREEN,URINE NEGATIVE; PHENCYCLIDINE SCREEN,URINE NEGATIVE; TRICYCLIC ANTIDEPRESSANT,URINE NEGATIVE
[2017-01-24 04:11] LABS: ALBUMIN/GLOBULIN RATIO 1.7 RATIO (1.1-2.2); ALKALINE PHOSPHATASE 90 U/L (38-126); ALT (SGPT) 37 U/L (9-52); ANION GAP 18 MEQ/L (5-15); AST (SGOT) 37 U/L (14-36); BUN/CREATININE RATIO 13 RATIO (6-26); CALCIUM 9.4 MG/DL (8.4-10.2); CHLORIDE 110 MEQ/L (98-107); CO2 - CARBON DIOXIDE 23 MEQ/L (22-30); CREATININE 0.8 MG/DL (0.7-1.2); ETHANOL 156 MG/DL (<10); GLOMERULAR FILTRATION RATE 85; GLUCOSE 113 MG/DL (65-110); POTASSIUM 4.4 MEQ/L (3.6-5); SODIUM 151 MEQ/L (134-144); TOTAL PROTEIN 7.9 G/DL (6.3-8.2)
--- NOTE | 2017-01-24 04:11 | NUR ---
PT STATUS PT RESTING ON COT, NO SIGNS OF DISTRESS, IS EASY TO WAKE, CALL LIGHT IN REACH. [employer] REMAINS WITH PT.
[2017-01-24 04:17] LABS: LYMPHOCYTES # (MANUAL) 3.1 T/MM3 (1-4.8); NEUTROPHILS #(MANUAL)-ABSOLUTE 14.1 T/MM3 (1.8-7.7); TOTAL CELLS COUNTED 100 %
[2017-01-24 04:27] LABS: PROLACTIN 34.7 NG/ML
[2017-01-24 04:49] VITALS: BP 116/76; PULSE 88; RESP 14; TEMP 98.2; O2SAT 97
--- NOTE | 2017-01-24 04:49 | NUR ---
DISMISSAL PT IS RELEASED IN THE CUSTODY OF [facility]. PT IS AMBULATORY WITHOUT DIFFICULITES.
== END 2017-01-24 04:49 | disposition home or self-care (01) ==
LOC: ED 03:02
DX: F10.129 Alcohol abuse with intoxication, unspecified (principal); F12.90 Cannabis use, unspecified, uncomplicated; F14.90 Cocaine use, unspecified, uncomplicated; Y90.6 Blood alcohol level of 120-199 mg/100 ml; E86.0 Dehydration
CPT/HCPCS: 36415; 80053; 80306; 80307; 81003; 82948; 84146; 85025